=== PATIENT | male | born 1980 | race Caucasian/White ===

== ENCOUNTER 2018-04-17 19:03 | Emergency (ER) | payer SELFPAY ==
[2018-04-17 19:25] VITALS: RESP 20
[2018-04-17 21:00] LABS: BASO # 0.1 K/uL (0.0-0.2); EOS % 0.5 % (0.0-4.0); HEMOGLOBIN 14.3 g/dL (12.0-18.0); LYMPH % 18.9 % (20.0-40.0); MEAN CELL VOLUME 90.4 fL (80.0-94.0); MEAN CORPUSCULAR HEMOGLOBIN 31.5 pg (27.0-31.0); MEAN CORPUSCULAR HGB CONC 34.8 g/dL (33.0-37.0); MEAN PLATELET VOLUME 8.7 fL (7.2-11.7); MONO # 0.5 K/uL (0.0-0.8); MONO % 8.7 % (0.0-10.0); NEUT # 3.8 K/uL (1.8-7.0); NEUT % 70.9 % (50.0-75.0); NRBC % 0.1 % (0.0-2.0); RBC 4.54 Mil/uL (4.40-5.90); RED CELL DISTRIBUTION WIDTH 13.6 % (11.5-14.5); WHITE BLOOD COUNT 5.3 K/uL (4.8-10.8)
[2018-04-17 21:08] LABS: VENOUS BLOOD GAS BASE EXCESS 5.5 mmol/L (0.0-2.0); VENOUS BLOOD GAS PCO2 51 mmHg (40-60); VENOUS BLOOD GAS PO2 24 mm/Hg (30-55)
[2018-04-17 21:11] LABS: URINE BILIRUBIN NEGATIVE (NEGATIVE); URINE BLOOD NEGATIVE (NEGATIVE); URINE CLARITY Clear (Clear); URINE COLOR Yellow (YELLOW); URINE GLUCOSE (UA) 3+ mg/dL (Normal); URINE LEUKOCYTE ESTERASE NEG Leu/uL (Negative); URINE PROTEIN 1+ mg/dL (NEGATIVE)
[2018-04-17 21:12] LABS: ALB/GLOB RATIO 1.4 (1.0-2.1); ALT/SGPT 79 U/L (21-72); AST/SGOT 78 U/L (17-59); BLOOD UREA NITROGEN 11 mg/dL (9-20); CALCIUM 9.7 mg/dl (8.6-10.4); GFR AFRICAN-AMERICAN > 60; GFR NON-AFRICAN AMERICAN > 60; LIPASE 235 U/L (23-300)
[2018-04-17] MEDS: Sodium Chloride 0.9% 1,000 ML IV ONE (21:16)
[2018-04-17] MEDS ORDERED: Sodium Chloride 0.9% 1,000 ML ONE (21:18)
--- NOTE | 2018-04-17 22:07 | C.PDOC ---
History Of Present Illness 37yo male with complaints of mild dizziness for an unspecified period of time. He has a history of diabetes, hypertension but is non-compliant with his medications. He states he has a PCP to follow up with as well. Otherwise, denies headache, weakness, or syncope. Time Seen by Provider: 04/17/18 20:20 Chief Complaint (Nursing): Dizziness/Lightheaded History Per: Patient History/Exam Limitations: no limitations Onset/Duration Of Symptoms: Unknown Current Symptoms Are (Timing): Still Present Past Medical History Reviewed: Historical Data, Nursing Documentation, Vital Signs Vital Signs: Last Vital Signs Temp 98 F 04/17/18 23:38 Pulse 62 04/17/18 23:38 Resp 20 04/17/18 23:38 BP 138/78 04/17/18 23:38 Pulse Ox 97 04/17/18 23:38 - Medical History PMH: Diabetes, HTN Surgical History: No Surg Hx - [facility] Procedures APPLICATION OF SPLINT (08/11/14) Family History: States: No Known Family Hx - Social History Hx Tobacco Use: No Hx Alcohol Use: Yes Hx Substance Use: No - Immunization History Hx Tetanus Toxoid Vaccination: No Hx Influenza Vaccination: No Hx Pneumococcal Vaccination: No Review Of Systems Except As Marked, All Systems Reviewed And Found Negative. Constitutional: Negative for: Weakness Neurological: Positive for: Dizziness. Negative for: Headache, Other (syncope) Physical Exam - Physical Exam Appears: Non-toxic, No Acute Distress Skin: Normal Color, Warm, Dry Head: Atraumatic, Normacephalic Eye(s): bilateral: Normal Inspection, PERRL, EOMI Neck: Normal ROM, Supple Chest: Symmetrical Cardiovascular: Rhythm Regular Respiratory: Normal Breath Sounds Extremity: Normal ROM, No Pedal Edema, No Deformity Neurological/Psych: Oriented x3, Normal Speech, Normal Cognition, Cerebellar Signs, Normal Motor, Normal Sensation ED Course And Treatment - Laboratory Results Result Diagrams: 04/17/18 20:56 04/17/18 20:56 ECG: Interpreted By Me, Viewed By Me ECG Rhythm: Sinus Rhythm, R BBB (incomplete) Rate From EC O2 Sat by Pulse Oximetry: 98 (RA) Pulse Ox Interpretation: Normal Medical Decision Making Medical Decision Making: Plan: -- Labs -- IV Fluids -- Urinalysis -- VBG Shock panel -- Meclizine 25mg PO Disposition - Disposition Referrals: [facility], [Non-Staff] - Disposition: HOME/ ROUTINE Disposition Time: 21:25 Condition: IMPROVED Additional Instructions: ALESSIA PRADO, thank you for letting us take care of you today. The emergency medical care you received today was directed at your acute symptoms. If you were prescribed any medication, please fill it and take as directed. It may take several days for your symptoms to resolve. Return to the Emergency Department if your symptoms worsen, do not improve, or if you have any other problems. Please contact your doctor or call one of the physicians/clinics you have been referred to that are listed on the Patient Visit Information form that is included in your discharge packet. Bring any paperwork you were given at discharge with you along with any medications you are taking to your follow up visit. Our treatment cannot replace ongoing medical care by a primary care provider outside of the emergency department. Thank you for allowing the [facility] team to be part of your care today. Follow up with your primary care doctor in 2-3 days for re-evaluation and further management. ALESSIA PRADO, lakshmi por dejarnos atenderlo january. La atencin mdica de emergencia que recibi hoy estaba dirigida a carolyn sntomas agudos. Si le prescribieron algn medicamento, llnelo y tome segn las indicaciones. Carolyn s ntomas pueden tardar varios johansen en resolverse. Regrese al Departamento de Emergencia si carolyn sntomas empeoran, no mejoran o si tiene algn otro problema. Comunquese con dietz mdico o llame a mili de los mdicos / clnicas a los que hudson sido referido que figura en el formulario de Informacin de visita del paciente que se incluye en dietz paquete de neyda. Traiga todos los documentos que recibi al momento del neyda junto con los medicamentos que est tomando en dietz visita de seguimiento. Nuestro tratamiento no puede reemplazar la atencin mdica en curso por un proveedor de atencin primaria fuera del departamento de emergencia. Lakshmi por permitir que el equipo de [facility] sea parte de dietz cuidado hoy. Martha un seguimiento con dietz mdico de atencin primaria en 2-3 johansen para erin nueva evaluacin y administracin adicional. Prescriptions: Meclizine [Meclizine*] 25 mg PO Q6 PRN #20 tab PRN Reason: Dizziness Instructions: Vertigo (a Type of Dizziness) Forms: Gen Discharge Inst Korean Print Language: SLOVENIAN - Clinical Impression Clinical Impression: Dizziness - Scribe Statement The provider has reviewed the documentation as recorded by the Carmitaibe Lilli Fowler Provider Attestation: All medical record entries made by the Scribe were at my direction and personally dictated by me. I have reviewed the chart and agree that the record accurately reflects my personal performance of the history, physical exam, medical decision making, and the department course for this patient. I have also personally directed, reviewed, and agree with the discharge instructions and disposition.
[2018-04-17 23:39] VITALS: BP 138/78; PULSE 62; TEMP 98
[2018-04-18 00:57] VITALS: O2SAT 98
== END 2018-04-17 23:42 | disposition home or self-care (01) ==
LOC: C.ER 19:03
DX: R42 Dizziness and giddiness (principal); E11.9 Type 2 diabetes mellitus without complications; I10 Essential (primary) hypertension
CPT/HCPCS: 80053; 81001; 82803; 83690; 84484; 85025; 96360; 99285; J7030

== ENCOUNTER 2018-08-06 14:54 | Emergency (ER) | payer OTHER ==
[2018-08-06 15:02] VITALS: BP 149/86; PULSE 108; RESP 20; TEMP 98.7; O2SAT 96
[2018-08-06] MEDS ORDERED: Amoxicillin-Clav 875-125 mg Tab PO STA (15:39)
--- NOTE | 2018-08-06 15:47 | C.PDOC ---
History Of Present Illness 38 y/o male with PMH of DM and HTN presents to the ER complaining of left ear pain which has been present for the past 1 day. Patient states that the pain began last night. Pt applied olive oil and garlic, and used a cotton swab to clean the ear. Pt then experienced severe pain with associated hearing loss and bloody discharge. Denies headache, fever, chills, or any other associated complaints. Time Seen by Provider: 08/06/18 15:05 Chief Complaint (Nursing): ENT Problem History Per: Patient History/Exam Limitations: no limitations Onset/Duration Of Symptoms: Days Current Symptoms Are (Timing): Still Present Severity: Moderate Past Medical History Reviewed: Historical Data, Nursing Documentation, Vital Signs Vital Signs: Last Vital Signs Temp 98.7 F 08/06/18 14:59 Pulse 108 H 08/06/18 14:59 Resp 20 08/06/18 14:59 BP 149/86 08/06/18 14:59 Pulse Ox 96 08/06/18 14:59 - Medical History PMH: Diabetes, HTN Surgical History: No Surg Hx - [facility] Procedures APPLICATION OF SPLINT (08/11/14) Family History: States: No Known Family Hx - Social History Hx Tobacco Use: No Hx Alcohol Use: Yes Hx Substance Use: No - Immunization History Hx Tetanus Toxoid Vaccination: No Hx Influenza Vaccination: No Hx Pneumococcal Vaccination: No Review Of Systems Except As Marked, All Systems Reviewed And Found Negative. Constitutional: Negative for: Fever, Chills ENT: Positive for: Ear Pain (left ear pain), Ear Discharge (bleeding) Cardiovascular: Negative for: Chest Pain, Palpitations Respiratory: Negative for: Cough, Shortness of Breath Gastrointestinal: Negative for: Nausea, Vomiting, Abdominal Pain Musculoskeletal: Negative for: Neck Pain Skin: Negative for: Bruising Neurological: Negative for: Weakness, Numbness, Headache, Dizziness Physical Exam - Physical Exam Appears: Well, Non-toxic, No Acute Distress Skin: Normal Color, Warm, Dry Head: Atraumatic, Normacephalic Eye(s): bilateral: Normal Inspection, PERRL, EOMI Ear(s): Left: Other (small amount of blood in external ear, ruptured TM, decreased hearing), Right: Normal Nose: Normal Oral Mucosa: Moist Throat: Normal Neck: Normal, Supple Chest: Symmetrical Cardiovascular: Rhythm Regular Respiratory: Normal Breath Sounds Extremity: Normal ROM, Capillary Refill (<2s) Extremity: Bilateral: Atraumatic, No Pedal Edema, Normal Color And Temperature, Normal ROM Pulses: Left Radial: Normal, Right Radial: Normal Neurological/Psych: Oriented x3, Normal Speech, Normal Cognition, Normal Motor, Normal Sensation Gait: Steady (without assistance) ED Course And Treatment O2 Sat by Pulse Oximetry: 96 (RA) Pulse Ox Interpretation: Normal Medical Decision Making Medical Decision Making: Plan: --Amoxicillin PO --Ibuprofen PO Patient evaluated and examined by HAROON Andrade, who confirmed left TM rupture. 15:48 Spoke with ENT, Dr. Schwab. Recommends followup in his office within the week and keeping the ear dry. States there is nothing more to do in the ED. Will discharge pt with prescriptions for ibuprofen and Augmentin. Plan of care discussed with patient, and strict instructions given regarding prescriptions, importance of follow up, and signs to return to Emergency Department, to include worsening pain, fever, chills, or any other new/worsening symptoms. Patient verbalizes understanding of discussion. Patient A&Ox3, ambulating with steady gait, stable for discharge home. Disposition Discussed With : Delbert Schwab Comment: Recommends followup in his office. Recommends keeping ear dry. Doctor Will See Patient In The: Office Counseled Patient/Family Regarding: Diagnosis, Need For Followup, Rx Given - Disposition Referrals: [facility] [Outside] Delbert Schwab MD [Staff Provider] - Disposition: HOME/ ROUTINE Disposition Time: 15:48 Condition: STABLE Additional Instructions: Sammi antibiticos dos veces al da phani erin semana Mantenga el odo seco, cubra mientras se ducha No ponga nada en el odo Seguimiento con ENT dentro de 2 johansen Seguimiento con dietz mdico de cabecera dentro de 2 johansen Volver a ER para cualquier nuevo/empeoramiento de los sntomas Prescriptions: Amoxicillin/Clavulanate [Augmentin 875 MG-125 MG] 1 tab PO Q12H #14 tab Ibuprofen [Motrin Tab] 600 mg PO Q8H PRN #30 tab PRN Reason: Pain, Moderate (4-7) Instructions: Ruptured Eardrum Forms: teextee (Estonian) Print Language: TRISTANIAN - Clinical Impression Clinical Impression: Ruptured tympanic membrane - PA / IC ENGINEER / Resident Statement MD/DO has reviewed & agrees with the documentation as recorded. - Scribe Statement The provider has reviewed the documentation as recorded by the Scribe Danielle Lorenz Provider Attestation All medical record entries made by the Carmitaibe were at my direction and personally dictated by me. I have reviewed the chart and agree that the record accurately reflects my personal performance of the history, physical exam, medical decision making, and the department course for this patient. I have also personally directed, reviewed, and agree with the discharge instructions and disposition.
[2018-08-06] MEDS ORDERED: Amoxicillin-Clav 875-125 mg Tab PO ONE (15:54)
== END 2018-08-06 16:03 | disposition home or self-care (01) ==
LOC: C.ER 14:54
DX: H72.92 Unspecified perforation of tympanic membrane, left ear (principal)